=== PATIENT | female | born 1965 | race Two or more races ===

== ENCOUNTER → 2016-12-18 | Outpatient (CLI) | payer MEDICAID | LOC: FIMAGING 15:45 | PROVIDERS: ATTEND Family Medicine | DX: M51.86 Other intervertebral disc disorders, lumbar region (principal) ==

== ENCOUNTER 2017-04-16 08:56 | Day surgery (SDC) | payer MEDICAID ==
[2017-04-16] MEDS ORDERED: LR 1,000 ML IV ONE (09:19)
--- NOTE | 2017-04-16 09:40 | PDANEPAE ---
ANE History of Present Illness 51 year old female presents for colonoscopy. ANE Past Medical History - Cardiovascular History Hx Hypertension: No Hx Arrhythmias: No Hx Chest Pain: No Hx Coronary Artery / Peripheral Vascular Disease: No Hx CHF / Valvular Disease: No Hx Palpitations: No - Pulmonary History Hx COPD: No Hx Asthma/Reactive Airway Disease: No Hx Recent Upper Respiratory Infection: No Hx Oxygen in Use at Home: No Hx Sleep Apnea: No - Endocrine History Hx Diabetes: No Hypothyroid: No Hyperthyroid: No Obesity: no - Renal History Hx Renal Disorders: No - Liver History Hx Hepatic Disorders: No - Neurological & Psychiatric Hx Hx Neurological and Psychiatric Disorders: Yes Neurological / Psychiatric History Comment: History of migraine headaches; patient is having migraine at time of evaluation in Pre-op - Cancer History Hx Cancer: No - Congenital Disorder History Hx Congenital Disorders: No - GI History GERD: no - Chronic Pain History Chronic Pain: No ANE Review of Systems - Exercise capacity Exercise capacity: >=4 METS ANE Patient History - Home Medications Home medications: home medication list seen and reviewed - NPO status NPO Status: no food or drink >8 hours NPO Since - Liquids (Date): 04/15/17 NPO Since - Liquids (Time): 23:00 NPO Since - Solids (Date): 04/15/17 NPO Since - Solids (Time): 09:00 - Anes Hx Anes Hx: no prior problems - Smoking Hx Smoking Status: Never smoked - Alcohol Use Alcohol Use: None - Family Anes Hx Family Anes Hx: neg - N/A ANE Labs/Vital Signs - Vital Signs Vital Signs: reviewed preoperatively; see RN documention for details Blood Pressure: 147/71 Heart Rate: 67 Respiratory Rate: 18 O2 Sat (%): 99 Height: 167.64 cm Weight: 79.379 kg ANE Physical Exam - Airway Neck exam: FROM Mallampati Score: Class 1 Mouth exam: normal dental/mouth exam - Pulmonary Pulmonary: no respiratory distress - Cardiovascular Cardiovascular: regular rate and rhythym - ASA Status ASA Status: II ANE Anesthesia Plan Anesthesia Plan: GA with mask Total IV Anesthesia: Yes
--- NOTE | 2017-04-16 09:45 | PDGENHP ---
History & Physical Chief Complaint: bloating, screening colonoscopy History of Present Illness: bloating Pertinent Past, Social, Family History: reviewed Relevant Physical Exam: nad Cardiorespiratory Assessment: rrr. ctab
[2017-04-16] MEDS ORDERED: PROPOFOL 200 MG/20 ML VIAL ONE ×2 (09:59→10:10)
[2017-04-16] MEDS ORDERED: fentaNYL 100 MCG/2 ML INJ IVP PRN (10:18)
[2017-04-16] MEDS ORDERED: LR 500 ML IV PRN (10:18)
[2017-04-16] MEDS ORDERED: ONDANSETRON 4 MG/2 ML VIAL IVP PRN (10:18)
[2017-04-16] MEDS ORDERED: NALOXONE HCL 0.4 MG/ML INJ IVP PRN (10:18)
[2017-04-16] MEDS ORDERED: ONDANSETRON 4 MG/2 ML VIAL ONE (10:19)
--- NOTE | 2017-04-16 11:10 | GPN ---
[f rep st] PROCEDURE NOTE DATE OF PROCEDURE: 04/16/2017 PROCEDURE: Colonoscopy. INDICATION: Average risk screening colonoscopy. She does also note incidental bloating which she attributes to menopausal symptoms. CONSENT: Informed consent was obtained from the patient after an explanation of risks, benefits, and alternatives to the procedure. MEDICATIONS GIVEN: Per Anesthesia. DESCRIPTION OF EXAM: After adequate sedation was achieved, the colonoscope was advanced through the anal orifice and as far as the cecum and terminal ileum. Retroflexion was performed in the ascending colon and in the rectum. Views were good. Prep quality was excellent. Patient tolerance of the procedure was good. COMPLICATIONS: None. ESTIMATED BLOOD LOSS: None. FINDINGS: 1. Normal terminal ileum. 2. Normal cecum, ascending, transverse, descending, sigmoid, rectum. WITHDRAWAL TIME: Greater than 10 minutes. IMPRESSION: Normal colonoscopy. No cause of bloating seen. RECOMMENDATIONS: Repeat average risk screening colonoscopy in 10 years. Resume regular diet. Follow up with primary care. /[id number]/MODL MTDD
--- NOTE | 2017-04-16 11:55 | POSTANESTH ---
Post Anesthetic Evaluation Cardiovascular Status: Normal, Stable, Similar to Pre-Op Cond Respiratory Status: Normal, Stable Level of Consciousness/Mental Status: Can Participate in Eval, Alert and Oriented Pain Control: Adequate, Prn Tx Ordered Nausea/Vomiting Control: Adequate, Prn Tx Ordered Complications Possibly Related to Anesthesia: None Noted
[2017-04-16 13:06] VITALS: RESP 16; O2SAT 98
[2017-04-16 13:10] VITALS: BP 125/74; PULSE 51
[2017-04-16 13:15] VITALS: TEMP 97.9
== END 2017-04-16 12:30 | disposition home or self-care (01) ==
LOC: FSGY 08:56
PROVIDERS: ATTEND Internal Medicine
PROC: 0DJD8ZZ Inspection of Lower Intestinal Tract, Via Natural or Artificial Opening Endoscopic (ICD-10-PCS; principal; 2017-04-16 10:30)
DX: Z12.11 Encounter for screening for malignant neoplasm of colon (principal); R14.0 Abdominal distension (gaseous)
CPT/HCPCS: J2405; J2704

== ENCOUNTER → 2017-08-26 | Outpatient (CLI) | payer MEDICAID | LOC: FIMAGING 15:01 | PROVIDERS: ATTEND Family Medicine | DX: R05 Cough (principal); R06.02 Shortness of breath ==

== ENCOUNTER 2018-02-23 16:18 | Emergency (ER) | payer MEDICAID ==
[2018-02-23 16:25] VITALS: BP 146/77
--- NOTE | 2018-02-23 16:31 | EDPHY ---
H & P Stated Complaint: lac to r index finger cut on broken bird feeder Time Seen by Provider: 02/23/18 16:27 HPI/ROS: HPI: This is a 52-year-old female who presents with Chief Complaint: lac to r index finger cut on broken bird feeder Location: Right index finger Quality: Laceration Duration: 45 min prior to arrival Signs and Symptoms: + bleeding, no radiation, no numbness, no weakness, no tingling, no incontinence, no decreased range of motion, no swelling, + pain, no fever Timing: Acute Severity: Mild Context: Patient is right-hand dominant, presents to the emergency room complaining of right index finger skin avulsion secondary to a piece of glass getting stuck in the tip. This occurred approximately 45 min prior to arrival. She pulled out the piece of glass in believes that she got all of the pieces. She does complain that it continues to bleed despite direct pressure. Reports tetanus is current. Denies weakness, paresthesias, decreased range of motion, skin color changes. Of note patient is extremely tearful as her father recently in this emergency room and she has not visited since that time a few months ago. Modifying Factors: Direct pressure. Comment: ROS: see HPI Constitutional: No fever, no chills, no weight loss Eyes: No blurred vision Respiratory: No shortness of breath, no cough Cardiovascular: No chest pain Gastrointestinal: No nausea, no vomiting no diarrhea Genitourinary: No dysuria Extremities: No myalgias Neurologic: No weakness, no numbness Skin: No rashes Hematologic: No bruising, no bleeding MEDICAL/SURGICAL/SOCIAL HISTORY: Medical history: Generally healthy. Does not take any regular medications. Surgical history: Denies Social history: Never smoked CONSTITUTIONAL: Tearful but polite and cooperative adult female, awake and alert, no obvious distress HEENT: Atraumatic and normocephalic. EXTREMITIES: 2/2 pulses, strength 5/5, right index finger tip shows 1/8 cm superficial, simple, small skin avulsion at the distal tip sparing the nail. No nail injury noted. No active bleeding noted. DIP/PIP/MCP flexion/extension intact with good light touch sensation. no deformities, no clubbing, no cyanosis or edema. NEUROLOGICAL: no focal neuro deficits. GCS 15. Light touch sensation intact. SKIN: Warm and dry, no erythema. no rash. Good capillary refill. Source: Patient Exam Limitations: No limitations - Personal History LMP (Females 10-55): 15-21 Days Ago Current Tetanus/Diphtheria Vaccine: Yes - Medical/Surgical History Hx Asthma: No Hx Chronic Respiratory Disease: No Hx Diabetes: No Hx Cardiac Disease: No Hx Renal Disease: No Hx Cirrhosis: No Hx Alcoholism: No Hx HIV/AIDS: No Hx Splenectomy or Spleen Trauma: No Other PMH: denies - Social History Smoking Status: Never smoked Constitutional: Initial Vital Signs Temperature (C) 36.8 C 02/23/18 16:22 Heart Rate 64 02/23/18 16:22 Respiratory Rate 18 02/23/18 16:22 Blood Pressure 146/77 H 02/23/18 16:22 O2 Sat (%) 98 02/23/18 16:22 O2 Delivery Mode Room Air Allergies/Adverse Reactions: No Known Allergies Allergy (Verified 02/23/18 16:22) Home Medications: Medication Instructions Recorded NK [No Known Home Meds] 02/23/18 Medical Decision Making ED Course/Re-evaluation: Tetanus is current. 2 cc of 1% lidocaine without epinephrine given oral cool anesthesia due to patient complaining of severe pain. Irrigated copiously, bacitracin and clean sterile dressing applied. No indication for suture for Dermabond. Written and verbal wound care instructions provided to patient. No signs of neurovascular compromise/tenting of skin/compartment syndrome/ extremities and joints examined above and below area of concern and are neurovascularly intact. This patient was seen under the supervision of my secondary supervising physician. I evaluated care for this patient independently. Discussed this patient with Dr. Bonilla who did not see the patient. Differential Diagnosis: Differential diagnosis includes but is not limited to skin avulsion, laceration , foreign body, nerve injury, tendon injury. Departure - Departure Disposition: Home, Routine, Self-Care Clinical Impression: Avulsion of skin of finger without complication Qualifiers: Encounter type: initial encounter Qualified Code(s): S61.209A - Unspecified open wound of unspecified finger without damage to nail, initial encounter Condition: Good Instructions: Skin Avulsion (ED) Additional Instructions: Keep the dressing dry and in place for 48 hours. After 48 hours, you may remove the dressing; wash the site daily with mild soap and water; then pat dry. Keep covered with a sterile dressing including a Band-Aid type apparatus until fully healed. Take Tylenol 650 mg every 4 hours and/or Ibuprofen 600 mg every 8 hours with food as needed for pain. Apply ice for 30 minutes at a time; 2-3 times per day for the next 1-2 days. Referrals: Nayeli Johnson PA [Primary Care Provider] - Follow Up Only If Needed
== END 2018-02-23 17:02 | disposition home or self-care (01) ==
DX: S61.200A Unspecified open wound of right index finger without damage to nail, initial encounter (principal); W25.XXXA Contact with sharp glass, initial encounter

== ENCOUNTER → 2019-02-11 | Outpatient (CLI) | payer MEDICAID | LOC: FIMAGING 11:12 ==